=== PATIENT | female | born 1960 | race American Indian/Alaskan Native ===

== ENCOUNTER 2019-02-04 20:12 | Emergency (ER) | payer OTHER ==
[~2019-02-04] VITALS: Ht 172.7 cm; Wt 167.8 kg
[~2019-02-04 20:12] MED LIST: ACETAMINOPHEN325 M1 PO; ADULT LOW DOSE81 MG PO; ALPRAZOLAM ER1 MG PO; ASPIRIN325 MG PO; BUDEPRION XL150 MG PO; BUPROPION XL150 MG PO; CLARITIN10 M2 PO; COZAAR50 MG PO; CYCLOBENZAPRINE10 MG PO; ENDOCET 7.5-321 EACH PO; ERGOCALCIF50000 UNIT PO; FEXOFENADINE H180 MG PO; FLONASE2 SPRAY; FLOVENT DISKUS50 MCG IH; HYDROMORPHONE HC4 MG PO; IMDUR30 MG PO; MELATONIN10 MG PO; MIRALAX17 GM PO; NAPROXEN500 MG PO; NORCO 7.5-3251 EACH PO; OXYCODONE HCL10 MG PO; OXYCODONE HCL5 MG PO; PAZEO2.5 ML OU; PROVENTIL HFA6.7 GM INH; PULMICORT FLEX90 MCG INH; SUPERVITE EC CAP1 MG PO; TRAMADOL HCL50 MG PO; TRIAMTERENE-HC1 EAC1 PO; VENTOLIN HFA18 GM IH; VITAMIN B COMP1 EACH PO; VITAMIN D2000 UNI1 PO; VITAMIN E400 UNI5 PO; XARELTO10 MG PO; ZOCOR40 MG PO; ZOLPIDEM TARTRA10 MG PO
--- OUTSIDE RECORDS SUMMARY | 2019-02-04 20:16 | XMS ---
PreManage Notification: ESTHER TOLENTINO Security Nat Instructor Events No recent Security Events currently on file CRITERIA MET - AMARILISP CARE PROVIDERS Chavo Webb Primary Care Current PHONE: Unknown orsalima Case or Pst Supervisor Current PHONE: Unknown Jamarcus [place] Tone Current Orthopedic Surgery \T\ Fracture Clinic PHONE: Unknown Jesse has no Care Guidelines for this patient. E.D. VISIT COUNT (12 MO.) 2 [facility] TOTAL 2 NOTE: Visits indicate total known visits. ED/UCC VISIT TRACKING (12 MO.) 02/04/2019 20:13 [facility] [place] TYPE: Emergency COMPLAINT: - LEFT INDEX FINGER INJURY 07/03/2018 09:58 [facility] [place] TYPE: Emergency COMPLAINT: - EXTREMITY PAIN NON INJURY DIAGNOSES: - Pain in left knee INPATIENT VISIT TRACKING (12 MO.) No inpatient visits to display in this time frame [email or web address]
[2019-02-04] MEDS ORDERED: VITAMIN E400 UNI6 PO (21:35)
[2019-02-04] MEDS ORDERED: BIOTIN5 MG PO (21:36)
[2019-02-04] MEDS ORDERED: B COMPLEX1 EACH PO (21:36)
== END 2019-02-04 23:11 | disposition home or self-care (01) ==
LOC: ED 20:12
DX: S61.301A Unspecified open wound of left index finger with damage to nail, initial encounter (principal); I10 Essential (primary) hypertension; J45.909 Unspecified asthma, uncomplicated; F32.9 Major depressive disorder, single episode, unspecified; F41.9 Anxiety disorder, unspecified; Z90.49 Acquired absence of other specified parts of digestive tract; Z88.0 Allergy status to penicillin; Z88.1 Allergy status to other antibiotic agents; Z88.5 Allergy status to narcotic agent; Z88.8 Allergy status to other drugs, medicaments and biological substances; Z79.899 Other long term (current) drug therapy; W45.8XXA Other foreign body or object entering through skin, initial encounter
CPT/HCPCS: 73140; 99283

== ENCOUNTER 2020-04-06 06:15 | Day surgery (SDC) | payer OTHER ==
[~2020-04-06] VITALS: Ht 172.7 cm; Wt 161.9 kg
[~2020-04-06 06:15] MED LIST changes: +B COMPLEX1 EACH PO; +BIOTIN5 MG PO; +FLUTICASONE-SA1 EAC4 INH; +PSEUDOEPHEDRINE30 MG PO; +SINGULAIR10 MG PO; +VITAMIN C500 M4 PO; +VITAMIN E400 UNI6 PO; +ZYRTEC10 MG PO
--- NOTE | 2020-04-06 07:46 | NUR ---
04/06/20 0746 Esmer Sheldon 0748 PATIENT ARRIVES TO PACU AWAKE OFF/ON. DENIES PAIN OR NAUSEA. C/O CRAMPING THAT IMPROVES WHEN PASSING GAS. RESP EVEN AND UNLABORED. NC AT 2 LITERS TURNED OFF ON ARRIVAL TO PACU.
--- NOTE | 2020-04-06 10:50 | OR ---
[facility] [address], [place] [address] Signed DATE OF OPERATION: 04/06/2020 SURGEON: Darrel Canela MD PREOPERATIVE DIAGNOSES: 1. Screening. 2. Diverticulosis. POSTOPERATIVE DIAGNOSES: 1. Extremely poor bowel prep. 2. Moderate sigmoid diverticulosis. PROCEDURE: Limited colonoscopy (left colon). ESTIMATED BLOOD LOSS: None. INDICATIONS: Esther is a 59-year-old obese prediabetic female asked to see me for followup colonoscopy. She is known to have diverticular disease from a colonoscopy in 2001 as well as 2011. However, her friend just turned 15, he had just completed his neoadjuvant chemo and radiation therapy followed by a low anterior resection for his rectal cancer. It is obviously weighing on her mind. She went to her primary care provider. They decided to refer her 2 years early for her followup colonoscopy. She has no family history of colon cancer or polyps. She has no lower GI complaints currently. I had met with Esther in the office. We had a long discussion regarding the above findings. I gave her a pamphlet on colonoscopy and we reviewed the nature of the test along with the risks including, but not limited to gas bloating, crampy abdominal pain, bleeding, perforation requiring surgery, and missed diagnosis. Also because of her significant medical issues as well as her very full round face, heavy neck and elevated body mass index, we asked that an anesthesia provider help us with increased monitoring sedation with propofol. She had expressed understanding and wished to proceed. DESCRIPTION OF PROCEDURE: Esther was taken into our endoscopy suite and placed in the left lateral decubitus position. She was given IV sedation with propofol per our nurse grain elevator man. A digital rectal exam was performed and this was unremarkable. The adult colonoscope was introduced and advanced under direct visualization of camera. We immediately encountered heavy liquid pasty stool in the rectum and it continued up to sigmoid colon Electronically Signed By: DARREL CANELA MD 08/14/20 1050 PATIENT NAME: ESTHER TOLENTINO OPERATIVE REPORT DATE OF : 60 REPORT #: [id number] PHYSICIAN: DARREL CANELA MD PCP: ANALY GAINES REPORT IS CONFIDENTIAL AND NOT TO BE RELEASED WITHOUT AUTHORIZATION [facility] [address] [place] [id number] Signed and into the left colon. We never could see mucosa of any significant degree. She does have very large wide-mouth diverticula that we saw in the sigmoid colon. Once up in the left colon, we were encountering even additional amounts of liquid stool. Consequently, we decided to abort the colonoscopy due to safety issues and lack of efficacy. Consequently, the gas was suctioned out and the colonoscope removed. Esther will need to reschedule a colonoscopy with a double bowel prep. She tolerated the procedure quite well, was taken into recovery room. RECOMMENDATIONS: Esther will reschedule with a double bowel prep as described above. MD SHIRLEY Hugo/ELOINA /[id number] cc: MD Analy Hugo NP Copies: DARREL CANELA MD ~ Electronically Signed By: DARREL CANELA MD 04/06/20 1050 PATIENT NAME: ESTHER TOLENTINO OPERATIVE REPORT DATE OF : 60 REPORT #: [id number] PHYSICIAN: DARREL CANELA MD PCP: ANALY GAINES-Rick REPORT IS CONFIDENTIAL AND NOT TO BE RELEASED WITHOUT AUTHORIZATION
--- NOTE | 2020-04-06 11:05 | PATH ---
[facility] [address] [place] [address] Signed THIS IS AN AMENDED REPORT ORDERING PHYSICIAN: Facundo Toro MD PATIENT NAME: ESTHER TOLENTINO GENDER: Lucia : 1960 SPECIMEN(S): REASON FOR AMENDED REPORT.: This amended report is issued to correct the referring provider. Originally reported as Unknown Clinician; amended to Facundo Toro MD at [facility]. The Molecular Pathology results remain unchanged. (04/05/20) MOLECULAR PATHOLOGY RESULTS: SARS-CoV-2 Not Detected ADDITIONAL NOTES.: The Amite Fusion SARS-CoV-2 Assay is a multiplex real-time PCR (RT-PCR) in vitro diagnostic test intended for the qualitative detection of RNA from SARS-CoV-2 from individuals who meet COVID-19 clinical and/or epidemiological criteria. In general, SARS-CoV-2 RNA can be detected during the acute phase of infection. Positive results indicate the presence of SARS-CoV-2 RNA. Clinical correlation with patient history and other diagnostic information is necessary to determine patient infection status. Positive results do not rule out bacterial infection or co-infection with other viruses. Negative results do not preclude SARS-CoV-2 infection and should not be used as the sole basis for patient management decisions. Negative results must be combined with other clinical observations, patient history, and epidemiological information. The Amite Fusion SARS-CoV-2 Assay is not yet approved or cleared by the [place] FDA. When there are no FDA-approved or cleared tests available, and other criteria are met, FDA can make tests available under an emergency access mechanism called an Emergency Use Authorization (EUA). The EUA for this test is supported by the Produce Specialist of Health and Human Service's (HHS's) declaration that circumstances exist to justify the emergency use of in vitro diagnostics for the detection and/or diagnosis of the virus that causes COVID-19. This EUA will PATIENT NAME: ESTHER TOLENTINO PATHOLOGY DATE OF : 60 REPORT #: [id number] PHYSICIAN: HAN BENNETT PCP: ANDREW GAINES REPORT IS CONFIDENTIAL AND NOT TO BE RELEASED WITHOUT AUTHORIZATION [facility] [address] [place], [place] [address] Signed remain in effect for the duration of the COVID-19 declaration justifying emergency of IVDs, unless it is terminated or revoked by FDA, after which the test may no longer be used. The Amite Fusion SARS-CoV-2 Assay is for use only under EUA in US laboratories certified under the Clinical Laboratory Improvement Amendments of 1988 (CLIA) to perform high complexity tests. [facility] is certified under CLIA to perform high complexity clinical laboratory testing. PERFORMING LABORATORY.: Molecular testing was performed by [facility] [address] [place] [address] (Magneto Repairer: Wil Flannery D.O.; CLIA#: [id number]) Diagnostician: System Interface Pathologist Electronically Signed 04/05/2020 Copies: ~ PATIENT NAME: ESTHER TOLENTINO PATHOLOGY DATE OF : 60 REPORT #: [id number] PHYSICIAN: HAN PATHOLOGY PCP: ANDREW GAINES REPORT IS CONFIDENTIAL AND NOT TO BE RELEASED WITHOUT AUTHORIZATION
== END 2020-04-06 08:10 | disposition home or self-care (01) ==
LOC: OPS 06:15 → DS 06:15 → OPS 06:45
PROVIDERS: Colon & Rectal Surgery
PROC: 0DJD8ZZ Inspection of Lower Intestinal Tract, Via Natural or Artificial Opening Endoscopic (ICD-10-PCS; principal; 2020-04-06 06:45)
DX: Z12.11 Encounter for screening for malignant neoplasm of colon (principal); K57.30 Diverticulosis of large intestine without perforation or abscess without bleeding; I10 Essential (primary) hypertension; E11.9 Type 2 diabetes mellitus without complications; J45.909 Unspecified asthma, uncomplicated; E78.5 Hyperlipidemia, unspecified; E55.9 Vitamin D deficiency, unspecified; F32.9 Major depressive disorder, single episode, unspecified; F41.9 Anxiety disorder, unspecified; E66.01 Morbid (severe) obesity due to excess calories; Z79.899 Other long term (current) drug therapy; Z88.8 Allergy status to other drugs, medicaments and biological substances; Z88.5 Allergy status to narcotic agent; Z88.1 Allergy status to other antibiotic agents; Z88.0 Allergy status to penicillin; Z68.43 Body mass index [BMI] 50.0-59.9, adult
CPT/HCPCS: J0690; J2001; J2704; J7121

== ENCOUNTER 2020-04-13 07:47 | Day surgery (SDC) | payer OTHER ==
[~2020-04-13] VITALS: Ht 172.7 cm; Wt 161.9 kg
--- NOTE | 2020-04-13 10:08 | NUR ---
04/13/20 1008 Sheets,Emi 0967 PT ARRIVED TO PACU ON RA, VSS. RESP EVEN AND UNLABORED. PT REPORTS TO NEED TO HAVE A BOWEL MOVEMENT. RN ENCOURAGES PT TO PASS GAS.
--- NOTE | 2020-04-14 10:44 | OR ---
[facility] [address] [place], [place] [address] Signed DATE OF OPERATION: 04/13/2020 SURGEON: Darrel Canela MD PREOPERATIVE DIAGNOSES: 1. Screening. 2. Diverticulosis. POSTOPERATIVE DIAGNOSES: 1. 5 mm polyp at 90 cm. 2. Moderate sigmoid diverticulosis. 3. Possible melanosis coli. PROCEDURE: Colonoscopy with hot biopsy and cold biopsy to distal right colon. ESTIMATED BLOOD LOSS: None. INDICATIONS: Esther is a 59-year-old female at 5 foot 8 inches, 352 pounds with a body mass index of 53. She was referred to me for a colonoscopy. She is known to have diverticular disease from a colonoscopy in 2001 and 2011. Her friend just turned 50 and is undergoing treatment for rectal cancer. Consequently, Esther had gone back to her primary care provider with respect to the above. We would generally check Esther every 10 years, given the fact, she has no family history and 2 previous negative colonoscopies. However, to come back to urate was certainly reasonable. In the office, I gave Esther a pamphlet on colonoscopy and we looked at that together in detail. She understands the nature of the test along with the risks including, but not limited to gas bloating, crampy abdominal pain, bleeding, perforation requiring surgery, and missed diagnosis. Also, because of her very full face, heavy neck, heavy chest, and abdomen and so forth, we did ask an anesthesia provider to help us with increased monitoring sedation with propofol. She had expressed understanding and wished to proceed. PROCEDURE NOTE: Esther was taken into our endoscopy suite and placed in the left lateral decubitus position. She was given IV sedation with propofol per our nurse cut pressman. A digital rectal exam was performed and this was unremarkable. The adult colonoscope was introduced and advanced under direct visualization of the camera. It took extra sedation and abdominal compression in order to advance the scope. It took 4 people to Electronically Signed By: DARREL CANELA MD 04/14/20 1044 PATIENT NAME: ESTHER TOLENTINO OPERATIVE REPORT DATE OF : 60 REPORT #: [id number] PHYSICIAN: DARREL CANELA MD PCP: ANALY GAINES REPORT IS CONFIDENTIAL AND NOT TO BE RELEASED WITHOUT AUTHORIZATION [facility] [address] [place], [place] [address] Signed rotate Esther into the supine position with additional sedation and 2 people applying abdominal pressure. We eventually made her way over to the hepatic flexure in the distal right colon. We could see the blue discoloration. We could palpate the area and feel the scope underneath her abdomen. We could see down the right colon, but never could see the ileocecal valve or the cecum itself. Overall, her prep was good. She had a couple of areas of moderate liquid particulate stool matter, most of which was suctioned out. The scope was then slowly withdrawn. We removed the polyp at 90 cm. Even then, we were not exactly sure if that is before or after the splenic flexure. She does have moderate sigmoid diverticulosis. They are moderate in size, moderate in number, and scattered about. She also had some dark discoloration in that left and sigmoid colon. Consequently, we took a couple of cold biopsies for pathologic review to evaluate for melanosis coli. The rectum was unremarkable. Upon retroflexion of scope, there was no additional pathology noted above the anal canal. After this, the gas was suctioned out. The colonoscope removed. Esther tolerated the procedure quite well. RECOMMENDATIONS: I will see Esther back in my office in 7 to 14 days to review her results. She needs to consider a barium enema to fully evaluate the right colon. Darrel Canela MD ALB/MODL /[id number] cc: Chart Filed Incomplete MD Analy Hugo FNP Copies: CHART FILED INCOMPLETE DARREL CANELA MD ~ Electronically Signed By: DARREL CANELA MD 04/14/20 1044 PATIENT NAME: ESTHER TOLENTINO OPERATIVE REPORT DATE OF : 60 REPORT #: [id number] PHYSICIAN: DARREL CANELA MD PCP: ANALY GAINES-Rick REPORT IS CONFIDENTIAL AND NOT TO BE RELEASED WITHOUT AUTHORIZATION
--- NOTE | 2020-04-17 14:55 | PATH ---
[facility] [address] [facility] [place] [address] Signed SPECIMEN(S): A COLON POLYP AT 90 CM SPECIMEN(S): B COLON BIOPSY SPECIMEN SOURCE: A. COLON POLYP AT 90 CM B. COLON BIOPSY CLINICAL HISTORY: Screening colonoscopy. Rule out melanosis coli. MICROSCOPIC DESCRIPTION: Histologic sections of all submitted blocks are examined by light microscopy. These findings, together with the gross examination, support the pathologic diagnosis. FINAL PATHOLOGIC DIAGNOSIS: A. Colon, polyp at 90 cm, polypectomy: - Fragments of cauterized colonic mucosa with no histopathologic abnormality. - Negative for dysplasia or malignancy. B. Colon, biopsy: - Colonic mucosa with melanosis coli. - Negative for active, chronic, or microscopic colitis. NAL:cml:C2NR GROSS DESCRIPTION: Two specimens are received in two containers, labeled "Roman, Esther." A. The specimen, labeled "Roman, Esther, 1," and designated on the requisition "90 cm," is received in formalin and consists of three vargas soft tissue fragments that measure 0.3 to 0.4 cm in greatest dimension. The specimen is entirely submitted in cassette (A1). B. The specimen, labeled "Roman, Esther, 2," and designated on the requisition "colon biopsy," is received in formalin and consists of two vargas soft tissue fragments that measure 0.4 and 0.4 cm in greatest dimension. The specimen is entirely submitted in cassette (B1). FB (under the direct supervision of a pathologist) The Gross Description was prepared using a voice recognition system. The report was reviewed for accuracy; however, sound-alike word errors, addition and/or deletions may occur. If there is any question about this report, please contact Client Services. PERFORMING LABORATORY: The technical component was performed by [email or web address], Lebron Houserangel Tony, PATIENT NAME: ESTHER ROMAN PATHOLOGY DATE OF : 60 REPORT #: [id number] PHYSICIAN: HAN BENNETT PCP: ANDREW GAINES REPORT IS CONFIDENTIAL AND NOT TO BE RELEASED WITHOUT AUTHORIZATION [facility] [address] [place], [place] [address] Signed [facility] [address] (Certified Technician: Fidelina Fregoso MD; CLIA# [id number]). Professional interpretation was performed by [facility], [address] [address] (CLIA# [id number]). Diagnostician: Manuela Cabrera MD Pathologist Electronically Signed 04/17/2020 Copies: ~ PATIENT NAME: ESTHER ROMAN PATHOLOGY DATE OF : 60 REPORT #: [id number] PHYSICIAN: HAN BENNETT PCP: LIANA,ANDREW CORONER-C REPORT IS CONFIDENTIAL AND NOT TO BE RELEASED WITHOUT AUTHORIZATION
== END 2020-04-13 10:30 | disposition home or self-care (01) ==
LOC: DS 07:47 → OPS 07:47 → DS 09:00 → OPS 10:30
PROVIDERS: Colon & Rectal Surgery
PROC: 0DBE8ZX Excision of Large Intestine, Via Natural or Artificial Opening Endoscopic, Diagnostic (ICD-10-PCS; 2020-04-13)
PROC: 0DBF8ZZ Excision of Right Large Intestine, Via Natural or Artificial Opening Endoscopic (ICD-10-PCS; principal; 2020-04-13 09:00)
DX: Z12.11 Encounter for screening for malignant neoplasm of colon (principal); K63.89 Other specified diseases of intestine; K57.30 Diverticulosis of large intestine without perforation or abscess without bleeding; I10 Essential (primary) hypertension; E11.9 Type 2 diabetes mellitus without complications; J45.909 Unspecified asthma, uncomplicated; E78.5 Hyperlipidemia, unspecified; E55.9 Vitamin D deficiency, unspecified; F32.9 Major depressive disorder, single episode, unspecified; F41.9 Anxiety disorder, unspecified; G47.00 Insomnia, unspecified; E66.01 Morbid (severe) obesity due to excess calories; Z68.43 Body mass index [BMI] 50.0-59.9, adult; Z79.899 Other long term (current) drug therapy; Z88.8 Allergy status to other drugs, medicaments and biological substances; Z88.5 Allergy status to narcotic agent; Z88.1 Allergy status to other antibiotic agents; Z88.0 Allergy status to penicillin
CPT/HCPCS: J0690; J2001; J2704; J7121

== ENCOUNTER 2020-09-28 11:17 | Emergency (ER) | payer OTHER ==
[~2020-09-28] VITALS: Ht 172.7 cm; Wt 150.6 kg
--- OUTSIDE RECORDS SUMMARY | 2020-09-28 11:20 | XMS ---
PreManage Notification: ESTHER TOLENTINO Security Hand Zipper Trimmer Events No recent Security Events currently on file CRITERIA MET - PDMP CARE PROVIDERS FELICE WESTON Nurse Practitioner: Family Current PHONE: [phone] Jesse has no Care Guidelines for this patient. EIvette VISIT COUNT (12 MO.) 1 [facility] Child TOTAL 1 NOTE: Visits indicate total known visits. ED/UCC VISIT TRACKING (12 MO.) 09/28/2020 11:18 [facility]que OR TYPE: Emergency COMPLAINT: - L KNEE PAIN/SWELLING INPATIENT VISIT TRACKING (12 MO.) No inpatient visits to display in this time frame [id number]
[2020-09-28] MEDS ORDERED: IBUPROFEN800 MG PO (11:41)
[2020-09-28] MEDS ORDERED: BUSPIRONE HCL7.5 MG PO (12:09)
[2020-09-28] MEDS ORDERED: MONTELUKAST SOD10 MG PO (12:10)
[2020-09-28] MEDS ORDERED: REFRESH TEARS15 ML OPTH (12:12)
[2020-09-28] MEDS ORDERED: SUDOGEST60 MG PO (12:13)
[2020-09-28] MEDS ORDERED: HYDROCODON-ACE1 EA10 PO (13:14)
[2020-09-28] MEDS ORDERED: ULTRA-LIGHT RO1 EACH MISC (13:14)
== END 2020-09-28 13:55 | disposition home or self-care (01) ==
LOC: ED 11:17
DX: S80.02XA Contusion of left knee, initial encounter (principal); W22.8XXA Striking against or struck by other objects, initial encounter; I10 Essential (primary) hypertension; J45.909 Unspecified asthma, uncomplicated; Z88.8 Allergy status to other drugs, medicaments and biological substances; Z88.1 Allergy status to other antibiotic agents; Z88.5 Allergy status to narcotic agent; Z88.0 Allergy status to penicillin; Z79.899 Other long term (current) drug therapy
CPT/HCPCS: 73562; 96372; 99283-25; J1885

== ENCOUNTER 2024-11-26 12:19 | Emergency (ER) | payer OTHER ==
[~2024-11-26] VITALS: Ht 172.7 cm; Wt 147.0 kg
[~2024-11-26 12:19] MED LIST changes: +BUSPIRONE HCL7.5 MG PO; +EYE ALLERGY IT2.5 ML OP; +HYDROCODON-ACE1 EA10 PO; +IBUPROFEN800 MG PO; +MELATONIN1 MG PO; -MELATONIN10 MG PO; +MONTELUKAST SOD10 MG PO; -PAZEO2.5 ML OU; +REFRESH TEARS15 ML OPTH; +SUDOGEST60 MG PO; +ULTRA-LIGHT RO1 EACH MISC
[2024-11-26] MEDS ORDERED: ROSUVASTATIN CA20 MG PO (13:28)
[2024-11-26] MEDS ORDERED: ZOLPIDEM TART12.5 MG PO (13:29)
[2024-11-26] MEDS ORDERED: OZEMPIC0.25 MG/02 (13:29)
[2024-11-26] MEDS ORDERED: MORPHINE SULFATE 4 MG/ML VIAL IV ONE (15:00)
[2024-11-26] MEDS ORDERED: ondansetron HCL 4 MG/2 ML VIAL IV ONE (15:00)
[2024-11-26 15:12] LABS: BASOPHILS 0.7 % (0-2); EOSINOPHILS 1.7 % (0-6); HEMATOCRIT 42.9 % (35.0-50.0); HEMOGLOBIN 14.6 g/dL (12.0-18.0); LYMPHOCYTES 19.3 % (24-44); MCH 29.9 (27-36); MCV 87.9 fl (81-99); MONOCYTES 8.5 % (0-12); NEUTROPHILS 69.8 % (39-80); PLATELET COUNT 190 K/uL (140-440); RBC 4.87 M/ul (4.3-5.7); RDW 13.8 (10.5-15.0)
[2024-11-26 15:32] LABS: ALBUMIN 3.7 g/dL (3.4-5.0); ALBUMIN/GLOBULIN RATIO 1.12 (1.1-2.4); BILIRUBIN, TOTAL 0.5 mg/dL (0.2-1.0); BUN/CREATININE RATIO 14.15 (6.0-28.6); CALCIUM 9.1 mg/dL (8.5-10.1); CREATININE, SERUM 1.13 mg/dL (0.55-1.02)
[2024-11-26 16:23] LABS: ERYTHROCYTE SEDIMENTATION RATE 19
[2024-11-26] MEDS ORDERED: HYDROCODON-ACE1 EAC8 PO (17:09)
[2024-11-26] MEDS ORDERED: COLCHICINE0.6 M1 PO (17:09)
[2024-11-26] MEDS ORDERED: KETOROLAC TROMETHAMINE 15 MG/ML VIAL IV ONE (17:15)
[2024-11-26 17:52] VITALS: BP 133/88
== END 2024-11-26 17:55 | disposition home or self-care (01) ==
LOC: ED 12:19
PROVIDERS: Emergency Medicine
DX: M10.9 Gout, unspecified (principal); I10 Essential (primary) hypertension; J45.909 Unspecified asthma, uncomplicated; Z88.0 Allergy status to penicillin; Z88.5 Allergy status to narcotic agent; Z88.1 Allergy status to other antibiotic agents; Z88.8 Allergy status to other drugs, medicaments and biological substances; Z79.899 Other long term (current) drug therapy
CPT/HCPCS: 36415; 73110; 73201; 80053; 85025; 85651; 86140; 99284-25; J1885; J2270; J2405; Q9967

== ENCOUNTER 2024-11-29 15:07 | Observation (INO) | payer OTHER ==
[~2024-11-29] VITALS: Ht 172.7 cm; Wt 143.7 kg
[~2024-11-29 15:07] MED LIST changes: +COLCHICINE0.6 M1 PO; +HYDROCODON-ACE1 EAC8 PO; +OZEMPIC0.25 MG/02; +ROSUVASTATIN CA20 MG PO; +ZOLPIDEM TART12.5 MG PO
[2024-11-29 15:39] VITALS: BP 136/87
[2024-11-29] MEDS ORDERED: methylPREDNISolone 4 MG TAB PO SCH (16:29)
[2024-11-29] MEDS ORDERED: AMP/SULBACTAM SOD 3 GM in SODIUM CHLORIDE 0.9% 100 ML IV SCH (16:30)
[2024-11-29] MEDS ORDERED: HYDROCODONE/ACETA 7.5/325 TAB PO PRN (16:30)
[2024-11-29 16:35] LABS: BASOPHILS 0.7 % (0-2); EOSINOPHILS 1.8 % (0-6); HEMATOCRIT 43.1 % (35.0-50.0); HEMOGLOBIN 14.9 g/dL (12.0-18.0); LYMPHOCYTES 23.7 % (24-44); MCH 30.3 (27-36); MCHC 34.5 g/dl (30-36); MCV 87.7 fl (81-99); MONOCYTES 10.1 % (0-12); NEUTROPHILS 63.7 % (39-80); PLATELET COUNT 193 K/uL (140-440); RBC 4.91 M/ul (4.3-5.7); RDW 13.9 (10.5-15.0)
[2024-11-29 16:47] LABS: ALBUMIN 3.8 g/dL (3.4-5.0); ALBUMIN/GLOBULIN RATIO 1.12 (1.1-2.4); ANION GAP 8.5 (7-21); BILIRUBIN, TOTAL 0.7 mg/dL (0.2-1.0); BUN/CREATININE RATIO 13.63 (6.0-28.6); CALCIUM 9.4 mg/dL (8.5-10.1); CREATININE, SERUM 1.1 mg/dL (0.55-1.02); POTASSIUM 4.5 mmol/L (3.5-5.1); PROTEIN, TOTAL 7.2 g/dL (6.4-8.2)
[2024-11-29] MEDS ORDERED: levoFLOXacin 750 MG PIGGYBACK IV SCH (16:49)
[2024-11-29] MEDS ORDERED: COLCRYS0.6 MG PO (17:14)
--- NOTE | 2024-11-29 17:17 | NUR ---
ASSESSMENT COMPLETE, PT HAS REDDENED AREA LUE OUTLINED WITH PURPLE SKIN MARKER. PT STATED SHE HAD A SCRATCH FROM A DOG THAT HEALED, BUT REMAINED RED AND THEN THE REDNESS "SPREAD". PT HAS LUE WITH BRACE ON, ICE APPLIED, AND PILLOWCASE SLING APPLIED. PT C/O TINGLING IN LUE PINKY AND NEXT 2 FINGERS. PT HAS 2+ PULSE TO LUE, CAP REFILL OF LESS THAN 3 SEC, ABLE TO MOVE LUE, AND HAND PINK. PT HAS HER OWN WALKER IN ROOM. STATES SHE INJURED HER R) KNEE AROUND RONNIE AND SINCE THAT TIME HAS USED A BRACE ON HER R) KNEE FOR INCREASED STABILITY, AND USES WALKER TO AMBULATE. PT HAS PRESCRIPTION SUNGLASSES AND HAT ON IN ROOM DUE TO SENSITVITY TO LIGHT. PT C/O PAIN TO LUE TO 6/10, DENIES NEED FOR PAIN MED AT THIS TIME. PT SITTING UP IN CHAIR EATING DINNER. NO REQUESTS AT THIS TIME. CALL LIGHT WITHIN REACH.
[2024-11-29] MEDS ORDERED: HYDROXYZINE PAM25 MG PO (17:18)
[2024-11-29] MEDS ORDERED: DICLOFENAC SODI50 GM TOP (17:19)
[2024-11-29] MEDS ORDERED: FLUTICASONE PRO16 GM NAS (17:19)
[2024-11-29] MEDS ORDERED: VITAMIN D350 MC3 PO (17:21)
[2024-11-29] MEDS ORDERED: WIXELA 250-501 EACH INH (17:22)
[2024-11-29] MEDS ORDERED: DEXTROSE 5% 1,000 ML IV PRN (18:00)
[2024-11-29] MEDS ORDERED: CYCLOBENZAPRINE HCL 10 MG HOME.PACK PO PRN (18:00)
[2024-11-29] MEDS ORDERED: DEXTROSE 50% 50 ML SYR IV PRN ×2 (18:00)
[2024-11-29] MEDS ORDERED: IBLOOD GLUCOSE TEST STRIP 1 EA TEST XX PRN (18:00)
[2024-11-29] MEDS ORDERED: GLUCAGON,HUMAN RECOMBINANT 1 MG/ML VIAL SUB-Q PRN (18:00)
[2024-11-29] MEDS ORDERED: CYCLOBENZAPRINE HCL 10 MG TAB PO PRN (18:15)
--- NOTE | 2024-11-29 18:58 | NUR ---
pt sitting up in bed watching tv with significant other. call light within reach, no requests at this time.
--- NOTE | 2024-11-29 19:30 | NUR ---
REPORT RECEIVED FROM DAYSHIFT RN. PATIENT RESTING IN BED, WATCHING TV. SO AT BEDSIDE. DENIES ANY NEEDS, PATIENT HAS ARM IN PILLOWCASE SLING AT 90 DEGREES. CALL LIGHT IN REACH
[2024-11-29 20:15] VITALS: BP 155/76
--- NOTE | 2024-11-29 20:15 | NUR ---
VS OBTAINED AND RECORDED. ASSESSMENT COMPLETE. SCHEDULED MEDS ADMIN PER ORDER. PATIENT HAS FAMILY MEMBER AT BEDSIDE. ARM IN SLING PER ORDER, CMS INTACT, 2+ PULSES. REDNESS ON L ARM OUTLINED, REDNESS HAS RECEDED FROM OUTLINE. PATIENT REPORTS IT HAS IMPROVED. L WRIST BRACE ON PATIENT, ICE PLACED ON PATIENT ARM. PATIENT DECLINES FURTHER NEEDS, CALL LIGHT IN REACH.
[2024-11-29 20:16] VITALS: BP 155/76
[2024-11-29] MEDS ORDERED: ZOLPIDEM TARTRATE 5 MG TAB PO SCH (21:00)
[2024-11-29] MEDS ORDERED: IBLOOD GLUCOSE TEST STRIP 1 EA TEST VI SCH (21:00)
[2024-11-29] MEDS ORDERED: MELATONIN 3 MG TAB PO SCH (21:00)
[2024-11-29] MEDS ORDERED: INSULIN LISPRO 100 UNIT/ML ML SUB-Q SCH (21:00)
[2024-11-30] VITALS (10 sets, daily range): BP systolic 110–143; BP diastolic 69–83
--- NOTE | 2024-11-30 00:26 | NUR ---
PATIENT RESTING WITH EYES CLOSED, SEMI FOWLERS POSITION. PATIENT HAS LEFT ARM IN SLING PER ORDER, BRACE REMAINS ON LEFT WRIST. NO NEEDS, CALL LIGHT IN REACH
--- NOTE | 2024-11-30 02:23 | NUR ---
PATIENT RESTING IN BED. VS AD I&Os OBTAINED AND RECORDED. PATIENT DENIES FURTHER NEEDS AT THIS TIME. CALL LIGHT IN REACH.
--- NOTE | 2024-11-30 03:34 | NUR ---
CALL LIGHT ANSWERED, PATIENT REQUESTED PAIN MEDICATION. PRN PAIN MEDICATION GIVEN. L ARM REMAINS IN SLING PER ORDER, L WRIST IN BRACE. ICE ON L ARM. CALL LIGHT IN REACH, BED ALARM ON.
--- NOTE | 2024-11-30 05:23 | NUR ---
VS OBTAINED AND RECORDED. L WRIST ASSESSMENT REMAINS UNCHANGED. WRIST IN BRACE, ARM IN SLING PER ORDER WITH ICE IN PLACE. PATIENT RESTING IN BED, DENIES ANY NEEDS, REPORTS PAIN IS IMPROVED FROM MEDICATION. CALL LIGHT IN REACH. BED ALARM ON.
[2024-11-30 05:26] LABS: BASOPHILS 0.8 % (0-2); EOSINOPHILS 0.8 % (0-6); HEMATOCRIT 40.6 % (35.0-50.0); HEMOGLOBIN 13.9 g/dL (12.0-18.0); LYMPHOCYTES 20.1 % (24-44); MCH 29.9 (27-36); MCHC 34.3 g/dl (30-36); MCV 87.3 fl (81-99); MONOCYTES 8.7 % (0-12); NEUTROPHILS 69.6 % (39-80); PLATELET COUNT 192 K/uL (140-440); RBC 4.65 M/ul (4.3-5.7); RDW 13.8 (10.5-15.0)
[2024-11-30 05:37] LABS: ANION GAP 5.8 (7-21); BUN/CREATININE RATIO 15.51 (6.0-28.6); CREATININE, SERUM 1.16 mg/dL (0.55-1.02); MAGNESIUM 2.2 mg/dL (1.8-2.4); POTASSIUM 3.8 mmol/L (3.5-5.1)
--- NOTE | 2024-11-30 06:50 | NUR ---
PATIENT RESTING IN BED, RESP. EVEN AND UNLABORED. ARM REMAINS IN SLING WITH BRACE IN PLACE AND ICE THERAPY ON L ARM. BED ALARM ON, NO NEEDS IDENTIFIED, CALL LIGHT IN REACH
--- NOTE | 2024-11-30 07:10 | NUR ---
REPORT RECEIVED FROM BORIS VALIENTE. PT L ARM ELEVATED IN PILLOW SLING WITH ICE. PT REQUESTING TO USE THE RESTROOM, PT TRANSFERS WITH SBA AND FWW TO RESTROOM. EDUCATED ON USING CALL CORD WHEN FINISHED, VERBALIZES UNDERSTANDING.
--- NOTE | 2024-11-30 08:52 | NUR ---
UR CLINICAL REVIEW: [facility] [place] REVIEW MEET OBS FOR CELLULITIS WITH NEED FOR IV ABX AND MONITORING [employer] OBS 11/29/24 @ 1538 ORDER MATCHES REG NO AUTH REQUIRED FOR OBS VISIT PLAN TO DISCHARGE HOME IN 24 HRS IF STABLE 12/01/24
--- NOTE | 2024-11-30 09:16 | NUR ---
PATIENT IS RESTING IN BED WATCHING TELEVISION, SIGNIFICANT OTHER AT BEDSIDE. PATIENT IS REQUESTING A SHOWER TODAY. NO OTHER REQUESTS, CALL LIGHT AND PERSONAL BELONGINGS IN REACH.
--- NOTE | 2024-11-30 09:47 | NUR ---
PATIENT IS IN BED AT THIS TIME, ARM IN PILLOW SLING. TURRET LATHE TENDER GOT FRESH WATER CHARTED VITALS AND I &O'S. I ROOM WITH PATIENT AT THIS TIME, CALL LIGHT WITH IN REACH AND NOTHING ELSE NEEDED AT THIS TIME.
--- NOTE | 2024-11-30 10:17 | NUR ---
MEDICATION ADMINISTERED, SEE MAR. ASSESSMENT COMPLETE. PATIENT IS RESTING IN BED WITH HOB ELEVATED, WATCHING TELEVISION WITH HER SIGNIFICANT OTHER AT BEDSIDE. PATIENT'S L ARM IS ELEVATED IN THE PILLOW SLING WITH ICE PACK IN PLACE. EDEMA IN PATIENT'S L ARM HAS DECREASED, WITH SOME REDNESS AND WARMTH REMAINING. REDNESS IS STILL ENCROACHING ON PREVIOUSLY DRAWN OUTLINE, PATIENT REPORTS BETTER MOBILITY AND LESS PAIN THAN YESTERDAY. PATIENT CAN MAKE A FIST AND REPORTS IT IS NO LONGER PAINFUL FOR HER ARM TO BE TOUCHED. RADIAL PULSE 2+ AND STRONG, PATIENT DENIES NUMBNESS OR TINGLING IN HER HAND AND STATES THIS IS AN IMPROVEMENT FROM YESTERDAY WHEN SHE HAD TINGLING. PATIENT DENIES PAIN AT THIS TIME. IV ABX INFUSING TO R HAND WNL. PATIENT IS WANTING TO TAKE A SHOWER TODAY. JS GREENBERG INFORMED AND REPORTS SHE WILL COORDINATE WITH PATIENT. NO OTHER REQUESTS, CALL LIGHT AND PERSONAL BELONGINGS IN REACH.
--- NOTE | 2024-11-30 11:26 | NUR ---
PATIENT WAS IN BED AT THIS TIME, INTERACTIVE MEDIA MARKETING SPECIALIST ASSISTED IN SETTING UP THE SHOWER FOR HER, GOT HER BEDDING CHANGED WHILE SHE SHOWERED. ASSISTED IN BRUSHING HER HAIR AND ADJUSTED COMFORTABLY BACK IN BED. GOT HER FRESH WATER AND A WARM BLANKET, CALL LIGHT WITH IN REACH AND NOTHING ELSE NEEDED AT THIS TIME.
--- NOTE | 2024-11-30 12:07 | NUR ---
medications reconciled using pharmacy records and patient interview
--- NOTE | 2024-11-30 13:26 | NUR ---
FRESH ICE PACK PROVIDED. PT HAS VISITOR IN ROOM, NO REQUESTS, CALL LIGHT AND PERSONAL BELONGINGS IN REACH.
--- NOTE | 2024-11-30 13:42 | NUR ---
PATIENT IS REPORTING L WRIST PAIN 03/02. PRN PAIN MEDICATION IS TOO EARLY TO ADMINISTER, PATIENT VERBALIZES UNDERSTANDING. TWO ICE PACKS PROVIDED AND PATIENT TAKES A BREAK FROM THE PILLOW CASE SLING TO REST HER ARM ON A PILLOW ON HER CHEST, SANDIWCHED BETWEEN TWO ICE PACKS. PATIENT REPORTS THIS IS FEELING "BETTER ALREADY". PT HAS VISITOR AT BEDSIDE THROUGHOUT, HAS NO OTHER REQUESTS AT THIS TIME. JS GREENBERG REMAINS IN ROOM TO OBTAIN VS.
--- NOTE | 2024-11-30 13:43 | NUR ---
PATIENT IS IN BED AT THIS TIME VISITING WITH HER BOYFRIEND. GRAFFITI CLEANER CHARTED VITALS AND I&O'S, GOT FRESH ICE WATER, CALL LIGHT WITH IN REACH AND NOTHING ELSE NEEDED AT THIS TIME.
--- NOTE | 2024-11-30 14:20 | NUR ---
Spoke with Roma. She lives in a downstairs apartment with 15 steps. Her son lives with her. She uses a cane and a walker since Jul. Her SO, Neo is present at my visit. Pt denies needs. Plans on dc to home tomorrow. Has hand elevated on a pillow with ice. She denies any needs for DME. Denies financial issues or safety concerns. Plan for dc tomorrow.
--- NOTE | 2024-11-30 15:32 | NUR ---
PRN PAIN MEDICATION ADMINISTERED, SEE MAR. PT RESTING IN BED WATCHING TELEVISION WITH HER SIGNIFICANT OTHER AT BEDSIDE. PTs L ARM IS RESTING ON A PILLOW ON HER CHEST SANDWICHED BETWEEN TWO ICE PACKS. PT REPORTS DECREASED PAIN SINCE HER ARM WAS LOWERED TO THIS POSITION. PT CONTINUES TO DENY NUMBNESS OR TINGLING IN HER L HAND AND CAN FLEX AND EXTEND FINGERS TO MAKE A FIST. CAPILLARY REFILL IS LESS THAN 3 SECONDS AND RADIAL PULSE IS 2+. PT EDEMA AND REDNESS ON L HAND/WRIST/ARM IS UNCHANGED FROM THIS AM ON THE POSTERIOR ASPECT OF HER ARM. MILD INCREASE FROM PREVIOUSLY DRAWN BORDER ON THE ANTERIOR ASPECT OF THE FOREARM. NEW OUTLINE DRAWN TO INCLUDE THIS AREA, BOTH OUTLINES DATED. PT AGREEABLE TO RETURNING HER L ARM TO THE PILLOW CASE SLING, TWO FRESH ICE PACKS PROVIDED WELL. IV TO PTs R HAND FLUSHES WNL, SALINE LOCKED. PT HAS NO REQUESTS, CALL LIGHT AND PERSONAL BELONGINGS IN REACH, PTs SIGNIFICANT OTHER REMAINS AT BEDSIDE THROUGHOUT.
--- NOTE | 2024-11-30 17:00 | NUR ---
MEDICATION ADMINISTERED, SEE MAR. PT HAS TWO VISITORS PRESENT AT THIS TIME. DINNER TRAY ARRIVES. PT SIGNIFICANT OTHER STATES HE WILL SET THE PTs TRAY UP. PT HAS NO REQUESTS AT THIS TIME, CALL LIGHT AND PERSONAL BELONGINGS IN REACH.
--- NOTE | 2024-11-30 17:42 | NUR ---
PATIENT IS IN BED AT THIS TIME, TOP EXECUTIVE GOT FRESH ICE WATER, CHARTED VITALS AND I&O'S. CALL LIGHT WITH IN REACH AND NOTHING ELSE NEEDED AT THIS TIME.
[2024-11-30] MEDS ORDERED: SENNOSIDES/DOCUSATE 1 EA TAB PO SCH ×2 (18:00→21:00)
--- NOTE | 2024-11-30 18:11 | NUR ---
MEDICATION ADMINISTERED, SEE MAR. PT HAS ARM IN PILLOW CASE SLING WHEN THIS RN ARRIVES BUT TAKES A BREAK AND SITS ON THE EDGE OF HER BED FOR AWHILE. MD SÁNCHEZ IN TO SEE PT, QUESTIONS AND CONCERNS ADDRESSED. NO OTHER REQUESTS, CALL LIGHT AND PERSONAL BELONGINGS IN REACH.
--- NOTE | 2024-11-30 19:32 | NUR ---
RECEIVED REPORT FROM [facility]. PATIENT SITTING UPRIGHT IN BED, WATCHING TV. DENIES ANY NEEDS, CALL LIGHT IN REACH
--- NOTE | 2024-11-30 20:45 | NUR ---
VS COMPLETED, FRESH ICE WATER GIVEN TO PT , WELL PT. BS 129. NO OTHER NEEDS AT THIS TIME.
[2024-11-30] MEDS ORDERED: ALBUTEROL SULFATE 0.083% 3 ML VIAL INH PRN (22:00)
--- NOTE | 2024-11-30 22:00 | NUR ---
PT CALLED, SBA TO BATHROOM. ONCE BACK TO BED, LEFT ARM IN PILLOWCASE SLING, WITH ICE. PILLOWS PER PT CHOICE. NO OTHER NEEDS AT THIS TIME.
--- NOTE | 2024-11-30 22:40 | NUR ---
CALL LIGHT ANSWERED. PATIENT REQUESTING PRN PAIN MEDICATION FOR 7/10 LEFT WRIST PAIN. PATIENT RIGHT HAND IV DRESSING COMING OFF. NEW IV DRESSING PLACED. IV FLUSHED WNL. PATIENT HAS NO FURTHER NEEDS. CALL LIGHT IN REACH.
--- NOTE | 2024-12-01 00:16 | NUR ---
ROUNDED ON PATIENT. PATIENT RESTING WITH EYES CLOSED, RESP EVEN AND UNLABORED. L ARM RESTING IN SLING PER ORDER. NO NEEDS IDENTIFIED, CALL LIGHT IN REACH
--- NOTE | 2024-12-01 02:38 | NUR ---
PATIENT RESTING WITH EYES CLOSED, RESP EVEN AND UNLABORED. BRACE CONTINUES TO BE ON L WRIST, ARM IN SLING PER ORDER. NO NEEDS IDENTIFIED, CALL LIGHT IN REACH
--- NOTE | 2024-12-01 04:35 | NUR ---
PATIENT RESTING WITH EYES CLOSED, RESP EVEN AND UNLABORED. NO NEEDS IDENTIFIED, CALL LIGHT IN REACH
[2024-12-01 05:21] VITALS: BP 142/78
[2024-12-01 05:22] VITALS: BP 142/78
[2024-12-01 05:23] LABS: BASOPHILS 0.6 % (0-2); EOSINOPHILS 2.3 % (0-6); HEMATOCRIT 42.2 % (35.0-50.0); HEMOGLOBIN 14.4 g/dL (12.0-18.0); LYMPHOCYTES 28.9 % (24-44); MCHC 34.2 g/dl (30-36); MCV 87.9 fl (81-99); MONOCYTES 8.9 % (0-12); NEUTROPHILS 59.3 % (39-80); PLATELET COUNT 193 K/uL (140-440); RBC 4.81 M/ul (4.3-5.7); RDW 13.9 (10.5-15.0)
--- NOTE | 2024-12-01 05:26 | NUR ---
PATIENT AMBULATORY TO RESTROOM USING FWW AND MINIMAL SBA. RETURNED WITHOUT DIFFICULTY, VS OBTAINED AND RECORDED. L WRIST ASSESSED, MINIMAL REDNESS NOTED ON THE DORSAL ASPECT OF THE WRIST, TRACE EDEMA. PATIENT REPORTS IT IS FEELING IMPROVED. CMS INTACT. WRIST PLACED IN BRACE AND SLING PER ORDER, ICE IN PLACE. PATIENT GIVEN WARM BLANKET PER REQUEST, NO FURTHER NEEDS. CALL LIGHT IN REACH
[2024-12-01 05:38] LABS: ANION GAP 11.8 (7-21); BUN/CREATININE RATIO 17.7 (6.0-28.6); CREATININE, SERUM 0.96 mg/dL (0.55-1.02); POTASSIUM 3.8 mmol/L (3.5-5.1)
[2024-12-01] MEDS ORDERED: HYDROCODON-ACE1 EA11 PO (07:06)
[2024-12-01] MEDS ORDERED: LEVOFLOXACIN750 MG PO (07:06)
--- NOTE | 2024-12-01 07:10 | NUR ---
REPORT RECEIVED FROM BORIS VALIENTE. PATIENT IN BED WITH HOB ELEVATED, L ARM ELEVATED IN PILLOW CASE SLING WITH ICE PACKS IN PLACE. PATIENT IS AWAKE AND ALERT, CONVERSING WITH THIS RN. NO REQUESTS AT THIS TIME, CALL LIGHT AND PERSONAL BELONGINGS IN REACH.
[2024-12-01] MEDS ORDERED: METHYLPREDNISOLO4 M1 PO (07:15)
--- NOTE | 2024-12-01 08:15 | NUR ---
MEDICATION ADMINISTERED, SEE MAR. ASSESSMENT COMPLETE. PATIENT IS RESTING IN BED WITH HOB ELEVATED WATCHING TELEVISION. HER LEFT ARM IS ELEVATED IN THE PILLOW CASE SLING. PATIENT REPORTS LEFT ARM PAIN OF 7/10, PRN PAIN MEDICATION ADMINISTERED, FRESH ICE PACK PROVIDED. PATIENT'S EDEMA AND REDNESS IS NOTED TO BE DECREASED FROM YESTERDAY, RECEDING FROM BOTH OUTLINES PREVIOUSLY DRAWN. RADIAL PULSE IS 2+ AND STRONG, CAPILLARY REFILL IS LESS THAN 3 SECONDS. PATIENT DENIES NUMBNESS OR TINGLING IN HER HAND OR FINGERS. PATIENT ALSO STATES HER ARM AND HAND LOOK AND FEEL BETTER. MD SÁNCHEZ ARRIVES TO ASSESS PATIENT. ALL QUESTIONS AND CONCERNS ANSWERED AND ADDRESSED. PATIENT IS LOOKING FORWARD TO GOING HOME TODAY. PATIENT BREAKFAST ARRIVES - THIS RN ASSISTS IN SETTING UP THE TRAY. IV ABX INFUSING TO R HAND WNL, PATIENT BEGINS EATING. NO OTHER REQUESTS, CALL LIGHT AND PERSONAL BELONGINGS IN REACH.
--- NOTE | 2024-12-01 08:17 | NUR ---
UR CLINICAL REVIEW: [facility] [place], MEETS DISCHARGE [facility] OBS 11/29/24 @ 1538 ORDER MATCHES REG NO AUTH REQUIRED FOR OBS VISIT PLAN TO DISCHARGE HOME TODAY. 12/04/24
--- NOTE | 2024-12-01 08:35 | NUR ---
In pt room for IV pump alarming. Pt is currently eating breakfast. IV pump alarming occlusion on pt end. Restarted IV fluids, pt has no c/o pain at IV site, IV site is free of redness or leaking.
--- NOTE | 2024-12-01 08:40 | NUR ---
In pt room for IV pump alarming occlusion on patient end. Pt is trying to finish eating her jello. IV pump restarted, IV patent, no redness or leaking noted, no c/o pain, no swelling noted. Pt finished with breakfast, ate 100%, breakfast tray removed. Call light in reach. Denies further needs at this time. Primary nurse notified.
[2024-12-01 09:22] VITALS: BP 116/68
--- NOTE | 2024-12-01 09:25 | NUR ---
PATIENT IN BED AT THIS TIME WAITING FOR IV TO BE DONE THEN RN OR LPN WILL ASSIST PATIENT IN GETTING READY TO GO. RN OR LPN CHARTED VITALS AND I&O'S, CALL LIGHT WITH IN REACH AND NOTHING ELSE NEEDED AT THIS TIME.
--- NOTE | 2024-12-01 10:26 | NUR ---
IV ABX COMPLETE. PATIENT IV FLUSHED WITH NORMAL SALINE AND THEN REMOVED, SITE WRAPPED WITH GAUZE AND COBAN. PATIENT EDUCATED ON REMOVAL, VERBALIZES UNDERSTANDING. PATIENT REPORTS NEEDING TO USE THE RESTROOM AND SHE WILL "SLOWLY BEGIN GETTING DRESSED". JS GREENBERG ARRIVES TO ASSIST WITH PATIENT CARES. JS REMAINS IN ROOM.
--- NOTE | 2024-12-01 10:30 | NUR ---
Brief visit with Roma. She is discharging today. No needs, family will transport her home. They are picking up her prescriptions.
== END 2024-12-01 11:15 | disposition home or self-care (01) ==
LOC: MS 15:07
PROVIDERS: Family Medicine; ADMIT Specialist; ATTEND Specialist
DX: L03.114 Cellulitis of left upper limb (principal); E11.9 Type 2 diabetes mellitus without complications; M10.9 Gout, unspecified; J45.901 Unspecified asthma with (acute) exacerbation; E78.00 Pure hypercholesterolemia, unspecified; G47.00 Insomnia, unspecified; Z79.85 Long-term (current) use of injectable non-insulin antidiabetic drugs; Z79.899 Other long term (current) drug therapy; Z88.0 Allergy status to penicillin; Z88.5 Allergy status to narcotic agent; Z90.49 Acquired absence of other specified parts of digestive tract; Z88.1 Allergy status to other antibiotic agents; Z88.8 Allergy status to other drugs, medicaments and biological substances
CPT/HCPCS: 36415; 80048; 80053; 83735; 85025; 96365; 96366; A9270; G0378; J1815; J1956; J7509

== ENCOUNTER 2025-04-21 07:15 | Day surgery (SDC) | payer OTHER ==
[~2025-04-21] VITALS: Ht 172.7 cm; Wt 145.0 kg
[~2025-04-21 07:15] MED LIST changes: +CEFAZOLIN SODIUM 3 GM/30 ML SYR IV SCH; +COLCRYS0.6 MG PO; +DICLOFENAC SODI50 GM TOP; +FLUTICASONE PRO16 GM NAS; +HYDROCODON-ACE1 EA11 PO; +HYDROXYZINE PAM25 MG PO; +IBLOOD GLUCOSE TEST STRIP 1 EA TEST VI PRN; +LACTATED RINGER'S 1,000 ML IV SCH; +LEVOFLOXACIN750 MG PO; +LIDOCAINE HCL 1% 5 ML SDV INJ ONE; +METHYLPREDNISOLO4 M1 PO; +VITAMIN D350 MC3 PO; +WIXELA 250-501 EACH INH
[2025-04-21 07:35] VITALS: BP 126/71
--- NOTE | 2025-04-21 08:19 | NUR ---
0720- PT ARRIVES TO DAY SURGERY ROOM 5. PT REPORTS ALLERGY TO WIPES. PT DECLINES WIPE DOWN FOR SURGERY DUE TO HIVES IN THE PAST.
[2025-04-21] MEDS ORDERED: MIDAZOLAM HCL 2 MG/2 ML VIAL ONE (08:38)
--- NOTE | 2025-04-21 09:53 | NUR ---
0964- DISCUSSION WITH DR. ARIAS. HE IS MADE AWARE THAT PHARMACY CHANGED ANCEF ORDER AND ABOUT PENICILLIN ALLERGY THAT PT REPORTED GAVE HER AN UPSET STOMACH. DR. ARIAS REPORTS HE WOULD STILL LIKE ANCEF GIVEN.
[2025-04-21] MEDS ORDERED: TRAMADOL HCL 50 MG TAB PO PRN (10:30)
[2025-04-21] MEDS ORDERED: TRAMADOL HCL50 MG PO (10:34)
--- NOTE | 2025-04-21 10:40 | NUR ---
04/21/25 1040 Emi Best 103 PT ARRIVED TO PACU ON RA, PT WAKES TO VERBAL STIMULI AND DENIES PAIN AND NAUSEA. "IT JUST NUMB." EDUCATION GIVEN ON BLOCK AND HOB INCREASED. DEEP BREATHING AND COUGHINIG NOTED AND ENCOURAGED. PLAN OF CARE DISCUSSED. VSS. ICE AND PILLOW IN PLACE FOR SURGICAL SITE.
[2025-04-21 10:59] VITALS: BP 126/73
--- NOTE | 2025-04-22 10:34 | OR ---
[facility] [address] [place], [place] [address] Signed DATE OF OPERATION: 04/21/2025 SURGEON: Adam Webb MD PREOPERATIVE DIAGNOSIS: Carpal tunnel syndrome, left. POSTOPERATIVE DIAGNOSIS: Carpal tunnel syndrome, left. PROCEDURE PERFORMED: Left carpal tunnel release. RESIN REMOVER: None. ANESTHESIA: Scooter block. TOURNIQUET TIME: 15 minutes. BRIEF HISTORY: Esther is a 64-year-old female with progressive worsening pain and numbness in her hand. Nerve conduction studies were positive for significant carpal tunnel. Risks and benefits of operative treatment were discussed with her and she elected to proceed. DESCRIPTION OF PROCEDURE: Once consent was obtained, she was taken to the operating room. After adequate anesthesia, she was left on the day surgery bed. The hand table was brought in. The Scooter block was established. The hand was then prepped and draped in a standard sterile fashion. The carpal tunnel was approached through a 1.5 cm incision in the distal wrist crease. This was carried through skin and subcutaneous tissue. The transverse carpal ligament was identified under loupe magnification. It was dissected free of overlying soft tissue distally and proximally. It was then released proximally a centimeter and distally to the distal extent. This was palpated using a [place]o and found to be completely released. The wound was copiously irrigated with normal saline, closed with 3-0 nylon and dressed with bacitracin, Adaptic, 4 x 8s, and gauze. We did inject the mercedes-incisional area with 7 mL of 0.25% plain Marcaine, dressing. She tolerated the procedure well. All sponge, needle, and instrument counts were correct. Electronically Signed By: ADAM WEBB MD 04/22/25 1034 PATIENT NAME: ESTHER TOLENTINO OPERATIVE REPORT DATE OF : 60 REPORT #: [id number] PHYSICIAN: ADAM WEBB MD PCP: [facility]ARD LOWP-BC REPORT IS CONFIDENTIAL AND NOT TO BE RELEASED WITHOUT AUTHORIZATION [address] [address] Signed Adam Webb MD BA/JOSEL /[id number] Copies: ~ Electronically Signed By: ADAM WEBB MD 04/22/25 1034 PATIENT NAME: ESTHER TOLENTINO OPERATIVE REPORT DATE OF : 60 REPORT #: [id number] PHYSICIAN: ADAM WEBB MD PCP: HOWARD LOWP- REPORT IS CONFIDENTIAL AND NOT TO BE RELEASED WITHOUT AUTHORIZATION
== END 2025-04-21 11:10 | disposition home or self-care (01) ==
LOC: DS 07:15
PROVIDERS: ATTEND Specialist
PROC: 01N50ZZ Release Median Nerve, Open Approach (ICD-10-PCS; principal; 2025-04-21 09:30)
DX: G56.02 Carpal tunnel syndrome, left upper limb (principal); E11.9 Type 2 diabetes mellitus without complications; E78.00 Pure hypercholesterolemia, unspecified; I10 Essential (primary) hypertension; Z79.899 Other long term (current) drug therapy; Z88.0 Allergy status to penicillin; Z88.1 Allergy status to other antibiotic agents; Z88.5 Allergy status to narcotic agent; Z88.8 Allergy status to other drugs, medicaments and biological substances; Z90.49 Acquired absence of other specified parts of digestive tract
CPT/HCPCS: 01810; J0690; J2250; J2704; J7121

== ENCOUNTER 2025-05-18 10:03 | Emergency (ER) | payer OTHER ==
[~2025-05-18] VITALS: Ht 172.7 cm; Wt 141.9 kg
[~2025-05-18 10:03] MED LIST changes: -CEFAZOLIN SODIUM 3 GM/30 ML SYR IV SCH; -IBLOOD GLUCOSE TEST STRIP 1 EA TEST VI PRN; -LACTATED RINGER'S 1,000 ML IV SCH; -LIDOCAINE HCL 1% 5 ML SDV INJ ONE
[2025-05-18] MEDS ORDERED: LIDOCAINE HCL 4% 1 EACH PATCH TD ONE (11:00)
[2025-05-18] MEDS ORDERED: CYCLOBENZAPRINE HCL 10 MG TAB PO ONE (11:00)
[2025-05-18] MEDS ORDERED: IBUPROFEN 600 MG TAB PO ONE (11:00)
[2025-05-18 11:45] VITALS: BP 142/81
[2025-05-18] MEDS ORDERED: LIDOCAINE PATCH REMOVAL 1 EA TD SCH (21:00)
== END 2025-05-18 11:49 | disposition home or self-care (01) ==
LOC: ED 10:03
DX: M54.89 Other dorsalgia (principal); I10 Essential (primary) hypertension; E78.00 Pure hypercholesterolemia, unspecified; J45.909 Unspecified asthma, uncomplicated; Z88.0 Allergy status to penicillin; Z88.5 Allergy status to narcotic agent; Z88.1 Allergy status to other antibiotic agents; Z88.8 Allergy status to other drugs, medicaments and biological substances; Z79.85 Long-term (current) use of injectable non-insulin antidiabetic drugs; Z79.899 Other long term (current) drug therapy
CPT/HCPCS: 99282; A9270